=== PATIENT | female | born 1940 | race Caucasian/White ===

== ENCOUNTER 2018-11-03 14:36 | Inpatient (IN) | payer MEDICARE, OTHER | END 2018-11-07 12:00 | disposition home or self-care (01) | LOC: EDH 14:36 → 4BH 11-05 16:50 → EDHIP 18:40 → 4BH 22:41 | DX: S82.831A Other fracture of upper and lower end of right fibula, initial encounter for closed fracture (principal); E87.1 Hypo-osmolality and hyponatremia; S01.01XA Laceration without foreign body of scalp, initial encounter; S82.24 Spiral fracture of shaft of tibia; X58.XXXA Exposure to other specified factors, initial encounter ==

== ENCOUNTER 2018-12-07 08:11 | Emergency (ER) | payer MEDICARE, OTHER ==
[~2018-12-07 08:11] MED LIST: LEVE500T8 PO
[2018-12-07 09:52] LABS: BILIRUBIN,URINE Negative (NEGATIVE); COLOR,URINE Yellow (YELLOW); GLUCOSE, URINE (UA) Negative (NEGATIVE); KETONES,URINE Trace mg/dL (NEGATIVE); LEUKOCYTE ESTERASE ,URINE Negative (NEGATIVE); NITRATE,URINE Negative (NEGATIVE); OCCULT BLOOD,URINE Negative (NEGATIVE); PROTEIN,URINE Negative (NEGATIVE); UROBILINOGEN,URINE 0.2 mg/dL (0.2-1.0)
[2018-12-07 09:53] LABS: APPEARANCE,URINE CLEAR (CLEAR)
[2018-12-07 10:01] LABS: CREATININE 0.8 mg/dL (0.5-1.5); POTASSIUM 3.6 mmol/L (3.5-5.1)
[2018-12-07 10:06] LABS: ALBUMIN 3.8 g/dL (3.5-5.0); BILIRUBIN,TOTAL 0.7 mg/dL (0.2-1.0); TOTAL PROTEIN, SERUM 7.8 g/dL (6.0-8.3)
[2018-12-07 10:10] LABS: BACTERIA,URINE Rare /HPF (None Seen); RBC,URINE None Seen /HPF (0-1); SQUAMOUS EPITHELIAL CELL,UR Rare /HPF (0-2); WBC,URINE 0-1 /HPF (0-1)
[2018-12-07 11:40] LABS: BASOPHILS % (AUTO) 0.9 % (0.0-5.0); EOSINOPHILS % (AUTO) 0.4 % (0.0-8.0); HEMATOCRIT 42.2 % (36-48); LYMPHOCYTES % (AUTO) 13.1 % (21.0-51.0); MEAN CORPUSCULAR HEMOGLOBIN 34.5 pg (27.0-33.0); MEAN CORPUSCULAR HGB CONC 33.8 g/dL (32.0-36.0); MEAN CORPUSCULAR VOLUME 102.1 fL (79-99); NEUTROPHILS % (AUTO) 75.6 % (40.0-77.0); PLATELET COUNT (AUTO) 284 K/uL (130-400); RED BLOOD CELL COUNT(AUTO) 4.13 MIL/uL (4.00-5.50); RED CELL DISTRIBUTION WIDTH 13.4 % (11.0-15.5); WHITE BLOOD COUNT (AUTO) 11.4 K/uL (4.8-10.8)
[2018-12-07 12:13] LABS: INR 0.95 (0.85-1.15); PARTIAL THROMBOPLASTIN TIME 29.1 SEC (26.3-35.5)
== END 2018-12-07 10:37 | disposition home or self-care (01) ==
LOC: EDH 08:11
DX: S00.03XA Contusion of scalp, initial encounter (principal); M54.2 Cervicalgia; W06.XXXA Fall from bed, initial encounter; Y93.89 Activity, other specified; Y92.89 Other specified places as the place of occurrence of the external cause; Y99.8 Other external cause status
CPT/HCPCS: 36415; 70450; 72125; 80053; 81001; 82550; 84484; 85025; 85610; 85730; 93005

== ENCOUNTER 2019-02-13 10:36 | Inpatient (IN) | payer MEDICARE, OTHER ==
[~2019-02-13] VITALS: Ht 167.6 cm; Wt 63.9 kg
[2019-02-13 11:09] LABS: BASOPHILS % (AUTO) 0.9 % (0.0-5.0); EOSINOPHILS % (AUTO) 0.4 % (0.0-8.0); HEMATOCRIT 43.8 % (36-48); LYMPHOCYTES % (AUTO) 21.6 % (21.0-51.0); MEAN CORPUSCULAR HEMOGLOBIN 34.8 pg (27.0-33.0); MEAN CORPUSCULAR HGB CONC 34.5 g/dL (32.0-36.0); MEAN CORPUSCULAR VOLUME 100.9 fL (79-99); MONOCYTES % (AUTO) 7.2 % (3.0-13.0); NEUTROPHILS % (AUTO) 69.9 % (40.0-77.0); NUCLEATED RED BLOOD CELLS 0.1 % (0.0-0.19); PLATELET COUNT (AUTO) 258 K/uL (130-400); RED BLOOD CELL COUNT(AUTO) 4.34 MIL/uL (4.00-5.50); RED CELL DISTRIBUTION WIDTH 13.6 % (11.0-15.5); WHITE BLOOD COUNT (AUTO) 6.7 K/uL (4.8-10.8)
[2019-02-13 11:13] LABS: CREATININE 0.8 mg/dL (0.5-1.5); POTASSIUM 3.6 mmol/L (3.5-5.1)
[2019-02-13 11:18] LABS: ALBUMIN 4.2 g/dL (3.5-5.0); BILIRUBIN,TOTAL 0.5 mg/dL (0.2-1.0); TOTAL PROTEIN, SERUM 7.9 g/dL (6.0-8.3)
[2019-02-13 11:30] LABS: INR 0.97 (0.85-1.15); PROTHROMBIN TIME 10.2 SEC (9.6-11.6)
[2019-02-13 12:55] LABS: APPEARANCE,URINE Cloudy (CLEAR); BILIRUBIN,URINE Negative (NEGATIVE); COLOR,URINE Yellow (YELLOW); GLUCOSE, URINE (UA) Negative (NEGATIVE); KETONES,URINE Negative (NEGATIVE); LEUKOCYTE ESTERASE ,URINE Trace (NEGATIVE); NITRATE,URINE Negative (NEGATIVE); OCCULT BLOOD,URINE Negative (NEGATIVE); PH,URINE >=9.0 (5.0-8.0); PROTEIN,URINE Trace mg/dL (NEGATIVE)
[2019-02-13 13:18] LABS: AMORPHOUS SEDIMENT,UR Few /LPF (None Seen); BACTERIA,URINE Few /HPF (None Seen); RBC,URINE None Seen /HPF (0-1); SQUAMOUS EPITHELIAL CELL,UR Few /HPF (0-2); WBC,URINE 0-1 /HPF (0-1)
[2019-02-13] MEDS ORDERED: ONDANSETRON HCL 4 MG/2 ML VIAL IV PRN (16:15)
[2019-02-13] MEDS ORDERED: ACETAMINOPHEN 325 MG TAB PO PRN ×2 (16:15)
[2019-02-13] MEDS ORDERED: HYDRALAZINE HCL 20 MG/ML VIAL IV PRN (16:15)
[2019-02-13] MEDS ORDERED: RED600CA6 PO (18:11)
--- NOTE | 2019-02-13 18:15 | NUR ---
Rec'd report from ER nurse; according to report, Dr. Reno is aware the neurology (Dr. Mccord) will not be available until Friday and is okay with this. Pt admitted from ER via stretcher to room 431 with at side. Pt awake, but very confused. Pulling at IV catheter, cafeteria monitor, and clothing. Unable to follow commands or make needs known.
[2019-02-13 19:03] VITALS: BP 138/90
--- NOTE | 2019-02-13 19:15 | NUR ---
Notified Tony Becker NP for hospitalist, of pt's continued confusion and of report from ER that MD is okay with no neuro consult until Friday. Rec'd orders for 1:1 sitter. He stated he will verify timing of neuro consult with MD and write further orders at that time.
[2019-02-13] MEDS ORDERED: LORAZEPAM 2 MG/ML 1 ML VIAL IM SCH (20:00)
--- NOTE | 2019-02-13 20:05 | NUR ---
NOTE Coral OVERTON CAME TO FLOOR AND SAID HE PLACED ORDERS TO HOLD LOVENOX, ATIVAN FOR AGITATION AND ONE TO ONE SITTER OBSERVATION.
[2019-02-13] MEDS: FAMOTIDINE/PF 20 MG/2 ML VIAL IV SCH (20:35)
[2019-02-13 23:32] VITALS: BP 161/63
[2019-02-13 23:34] VITALS: BP 161/63
[2019-02-14] VITALS (7 sets, daily range): BP systolic 132–160; BP diastolic 49–95
[2019-02-14] MEDS ORDERED: LORAZEPAM 2 MG/ML 1 ML VIAL IVP SCH (04:00)
--- NOTE | 2019-02-14 07:15 | NUR ---
ORIENTATION: PT AROUSED FROM SLEEP. DENIES PAIN. ORIENTATED TO PERSON, TIME AND PLACE, REMEMBERS HER NAME, BUT DOES NOT KNOW WHERE SHE IS AT AND DOES NOT REMEMBER ANYTHING ABOUT YESTERDAY
--- NOTE | 2019-02-14 07:47 | NUR ---
NUTRITION: SITTING UP IN BED, EATING BREAKFAST. ORIENTATED TO TODAY'S DATE, PT WONDERING WHAT HAPPENED TO HER WHY SHE FAINTED. EXPLAINED TESTS STILL PENDING AND DR WILL COME IN AND DISCUSS RESULTS WITH HER.
--- NOTE | 2019-02-14 08:55 | NUR ---
ELIMINATION: AMB TO BR, SLIGHTLY UNSTEADY, VOIDED 300MLS DK RICARDO URINE. AMB BACK TO BEDSIDE CHAIR.
[2019-02-14] MEDS ORDERED: ENOXAPARIN SODIUM 40 MG/0.4 ML SYRINGE SQ SCH (09:00)
--- NOTE | 2019-02-14 09:00 | NUR ---
hygeine: brushed her teeth and washed face.
--- NOTE | 2019-02-14 09:15 | NUR ---
activity: amb in hallway with this nurse, gait more steady. Pt very talkative. Does not remember where she lives.
[2019-02-14] MEDS: FAMOTIDINE/PF 20 MG/2 ML VIAL IV SCH ×2 (09:29→19:45)
--- NOTE | 2019-02-14 09:30 | NUR ---
visitation: HERE WITH HER.
--- NOTE | 2019-02-14 10:08 | NUR ---
activity: AMB IN THE ROOM, PUTTING ON HER MAKEUP.
[2019-02-14] MEDS ORDERED: LORAZEPAM 2 MG/ML 1 ML VIAL IVP PRN (10:15)
[2019-02-14] MEDS ORDERED: GADODIAMIDE 5 MMOL/10 ML VIAL 5 MMOL/10 ML VIAL IV ONE (10:34)
--- NOTE | 2019-02-14 10:55 | NUR ---
ACTIVITY: DRINKING COFFEE AND VISITING WITH HER . PT STILL FORGETFUL ABOUT SOMETHINGS. CHEERFUL AND PLEASANT.
--- NOTE | 2019-02-14 11:45 | NUR ---
MRI: TAKEN TO MRI VIA W/C WITH MRI PERSONNEL.
--- NOTE | 2019-02-14 12:08 | NUR ---
MRI: BACK FROM MRI. TO CHAIR TO EAT HER LUNCH, IN THE ROOM.
--- NOTE | 2019-02-14 15:00 | NUR ---
orientation: PT FORGETFUL AND CONFUSES EASILY ABOUT WHERE SHE IS AT. GETS UP AND WANTS TO GO OUT IN HALLWAY TO LOOK FOR A SCREWDRIVER TO FIX HER PHONE CASE. REMIND HER OFTEN ABOUT WHERE SHE IS AT AND STARTS TALKING ABOUT SOMETHING ELSE.
--- NOTE | 2019-02-14 16:05 | NUR ---
ACTIVITY: SITTING UP IN CHAIR READING THE NEWSPAPER. ASKING HER " IS THIS WHAT I AM WEARING TO GO HOME" REMINDED HER THAT SHE IS NOT GOING HOME TODAY AND CONT TO READ PAPER.
--- NOTE | 2019-02-14 17:03 | NUR ---
family: KISSED PT GOODBYE AND TOLD HER WILL BE BACK IN THE MORNING, GOING HOME. PT ASKING WERE ARE YOU GOING. REPEATED HIMSELF AGAIN AND PT DID NOT RESPOND.
--- NOTE | 2019-02-14 17:16 | NUR ---
D/C PLAN CM spoke to pt regarding d/c planning. Pt is ind. and lives with spouse. State spouse can assist in care if needed. Pt has wk at home but does not use. Plan to home. CM to f/u Addendum: 02/14/19 at 1717 by CHIQUI DURHAM CM Amended: Links added.
--- NOTE | 2019-02-14 18:30 | NUR ---
restless: GETTING ANXIOUS, TRYING TO CALL HER AND NO ANSWER. REASURED,THIS NURSE CALLED 'S PHONE NUMBER AND LEFT MESSAGE TO CALL THE PT.
--- NOTE | 2019-02-14 18:55 | NUR ---
ACTIVITY: AMB IN HALLWAY, DISTRACTING PT.
--- NOTE | 2019-02-14 19:20 | NUR ---
REST: PT STATES SHE IS READY FOR BED, ASSISSTED TO CHANGE AND LIE DOWN IN BED. CALL BRENNAN AT HER SIDE. LIGHTS DIMMED AT PT'S REQUEST.
--- NOTE | 2019-02-14 19:30 | NUR ---
report: REPORT TO David DAHL CNA FOR CONTINUITY OF CARE. KITA BRYANT TO PT AND PT VERY GRATEFUL FOR ALL THE CARE.
--- NOTE | 2019-02-14 19:40 | NUR ---
: PT'S TALKING TO HER ON THE TELEPHONE.
[2019-02-15 00:36] VITALS: BP 148/82
[2019-02-15 04:30] VITALS: BP 140/70
[2019-02-15 07:00] VITALS: BP 146/66
[2019-02-15] MEDS: FAMOTIDINE/PF 20 MG/2 ML VIAL IV SCH ×2 (08:13→20:04)
[2019-02-15 08:43] LABS: MEAN CORPUSCULAR HEMOGLOBIN 34.1 pg (27.0-33.0); MEAN CORPUSCULAR HGB CONC 33.5 g/dL (32.0-36.0); NUCLEATED RED BLOOD CELLS 0.1 % (0.0-0.19); PLATELET COUNT (AUTO) 235 K/uL (130-400); RED BLOOD CELL COUNT(AUTO) 4.02 MIL/uL (4.00-5.50); RED CELL DISTRIBUTION WIDTH 13.7 % (11.0-15.5); WHITE BLOOD COUNT (AUTO) 7.3 K/uL (4.8-10.8)
[2019-02-15 08:50] LABS: CREATININE 0.7 mg/dL (0.5-1.5); POTASSIUM 3.5 mmol/L (3.5-5.1)
[2019-02-15 11:24] VITALS: BP 135/61
[2019-02-15] MEDS: LEVETIRACETAM 500 MG TABLET PO SCH ×2 (11:40→20:04)
--- NOTE | 2019-02-15 14:29 | NUR ---
RD Notification Patient tolerating Regular diet with no report of GI distress and PO intake at 100%. Patient with no nutrition concerns at this time. Patient LBM 02/14/19. All nutritional labs WNL. RD to continue to monitor. Please notify RD as nutritional concerns arise. Thank you. Addendum: 02/15/19 at [address] Amended: Links added.
[2019-02-15 16:00] VITALS: BP 128/71
[2019-02-15] MEDS: ENOXAPARIN SODIUM 30 MG/0.3 ML SQ SCH (17:02)
[2019-02-15] MEDS ORDERED: POTASSIUM CHLORIDE 20 MEQ ERTAB PO PRN (19:00)
[2019-02-15] MEDS ORDERED: LIDOCAINE HCL-MPF 1% 2ML VIAL IVP PRN ×2 (19:00)
[2019-02-15] MEDS ORDERED: POTASSIUM CHLORIDE 20MEQ/100ML 100 ML IV PRN ×2 (19:00)
[2019-02-15] MEDS ORDERED: POTASSIUM CHLORIDE 10% ELIXIR 20 MEQ/15 ML UDCUP PO PRN (19:00)
[2019-02-15 20:00] VITALS: BP 142/68
[2019-02-16] VITALS: BP 140/77
[2019-02-16 04:00] VITALS: BP 141/76
[2019-02-16 04:40] LABS: MEAN CORPUSCULAR HEMOGLOBIN 35.2 pg (27.0-33.0); MEAN CORPUSCULAR HGB CONC 34.7 g/dL (32.0-36.0); MEAN CORPUSCULAR VOLUME 101.5 fL (79-99); NUCLEATED RED BLOOD CELLS 0.1 % (0.0-0.19); PLATELET COUNT (AUTO) 205 K/uL (130-400); RED BLOOD CELL COUNT(AUTO) 3.74 MIL/uL (4.00-5.50); RED CELL DISTRIBUTION WIDTH 13.5 % (11.0-15.5)
[2019-02-16 04:53] LABS: CREATININE 0.8 mg/dL (0.5-1.5); POTASSIUM 3.7 mmol/L (3.5-5.1)
[2019-02-16 08:00] VITALS: BP 142/67
[2019-02-16] MEDS: ENOXAPARIN SODIUM 30 MG/0.3 ML SQ SCH (08:37)
[2019-02-16] MEDS: FAMOTIDINE/PF 20 MG/2 ML VIAL IV SCH (08:37)
[2019-02-16] MEDS: LEVETIRACETAM 500 MG TABLET PO SCH (08:37)
[2019-02-16 10:00] VITALS: BP_SYST 125; BP_SYST 134; BP_SYST 143; BP_DIAS 58; BP_DIAS 62
[2019-02-16] MEDS ORDERED: ATORVASTATIN CALCIUM 20 MG TABLET PO SCH ×2 (10:00→12:00)
[2019-02-16] MEDS ORDERED: DOXY100T2 PO (10:43)
[2019-02-16] MEDS ORDERED: ATOR20TA65 PO (10:43)
[2019-02-16] MEDS ORDERED: LEVE500T8 PO (10:43)
[2019-02-16 11:15] VITALS: BP_SYST 134; BP_SYST 143; BP_SYST 165; BP_DIAS 58; BP_DIAS 62; BP_DIAS 64
[2019-02-16 11:16] VITALS: BP 153/70
[2019-02-16] MEDS ORDERED: DOXYCYCLINE HYCLATE 100 MG TABLET PO SCH (11:30)
--- NOTE | 2019-02-16 14:05 | NUR ---
DISCHARGE DISCHARGE TEACHING DONE WITH PATIENT AND USING TEACHBACK METHOD,VERBALIZED UNDERSTANDING. PT AWARE OF NEED TO SET UP APPOINTMENT WITH PCP AND BOX WORKER. AWARE OF DR. SESAY APPOINTMENT, VERBALIZED UNDERSTANDING. NEW MEDICATION ADMINISTRATION TEACHING DONE WITH PATIENT AND USING TEACHBACK METHOD, VERBALIZED UNDERSTANDING. IV REMOVED, CATH TIP INTACT. TELEPACK REMOVED AND RETURNED. PENDING TO BE TRANSFERRED OUT VIA PRIVATE VEHICLE.
== END 2019-02-16 14:20 | disposition home or self-care (01) | DRG 689 ==
LOC: EDH 10:36 → EDHIP 16:06 → 4AH 17:36
PROVIDERS: ADMIT Family Medicine; ATTEND Family Medicine
DX: N39.0 Urinary tract infection, site not specified (principal); G93.41 Metabolic encephalopathy; E78.5 Hyperlipidemia, unspecified; B95.8 Unspecified staphylococcus as the cause of diseases classified elsewhere; E87.6 Hypokalemia; Z79.899 Other long term (current) drug therapy; Z91.14 Patient's other noncompliance with medication regimen; Z83.3 Family history of diabetes mellitus
CPT/HCPCS: 36415; 70450; 70553; 71045; 80048; 80053; 81001; 82550; 84484; 85025; 85027; 85610; 85730; 87077; 87088; 87186; 93005; A9579; G0378; J1650; J2060; J3490

== ENCOUNTER 2020-09-09 15:58 | Inpatient (IN) | payer MEDICARE, OTHER ==
[~2020-09-09] VITALS: Ht 162.6 cm; Wt 60.1 kg
[~2020-09-09 15:58] MED LIST changes: +ATOR20TA65 PO; +LEVE-43 PO; -LEVE500T8 PO
[2020-09-09 16:38] LABS: BASOPHILS % (AUTO) 0.4 % (0.0-5.0); HEMATOCRIT 41.3 % (36-48); LYMPHOCYTES % (AUTO) 14.2 % (21.0-51.0); MEAN CORPUSCULAR HGB CONC 34.1 g/dL (32.0-36.0); MEAN CORPUSCULAR VOLUME 99.5 fL (79-99); MONOCYTES % (AUTO) 3.8 % (3.0-13.0); NEUTROPHILS % (AUTO) 81.1 % (40.0-77.0); PLATELET COUNT (AUTO) 295 K/uL (130-400); RED BLOOD CELL COUNT(AUTO) 4.15 MIL/uL (4.00-5.50); RED CELL DISTRIBUTION WIDTH 12.9 % (11.0-15.5); WHITE BLOOD COUNT (AUTO) 7.4 K/uL (4.8-10.8)
[2020-09-09 16:53] LABS: CREATININE 0.8 mg/dL (0.5-1.5); POTASSIUM 3.5 mmol/L (3.5-5.1)
[2020-09-09] MEDS ORDERED: LORAZEPAM 2 MG/ML 1 ML VIAL ONE (16:56)
[2020-09-09 16:57] LABS: ALBUMIN 3.6 g/dL (3.5-5.0); BILIRUBIN,TOTAL 0.4 mg/dL (0.2-1.0); TOTAL PROTEIN, SERUM 7.4 g/dL (6.0-8.3)
[2020-09-09] MEDS ORDERED: LEVETIRACETAM 500 MG/5 ML SD VIAL IV ONE ×2 (17:10→20:30)
[2020-09-09] MEDS ORDERED: SODIUM CHLORIDE 0.9% 100 ML IV ONE (17:10)
[2020-09-09] MEDS ORDERED: IOHEXOL-350 75 ML VIAL IV ONE (17:43)
[2020-09-09] MEDS ORDERED: ONDANSETRON HCL 4 MG/2 ML VIAL IV PRN (20:00)
[2020-09-09] MEDS ORDERED: ACETAMINOPHEN 325 MG TAB PO PRN ×2 (20:00)
[2020-09-09] MEDS ORDERED: LACTULOSE 20 GM/30 ML UDCUP PO PRN (20:00)
[2020-09-09] MEDS ORDERED: LORAZEPAM 2 MG/ML 1 ML VIAL IVP PRN (20:00)
[2020-09-09] MEDS ORDERED: COMPOUND IV MISC 1 EACH IVSOLN MISC PRN (20:15)
[2020-09-09] MEDS ORDERED: FAMOTIDINE/PF 20 MG/2 ML VIAL IV ONE (20:31)
[2020-09-09] MEDS ORDERED: SODIUM CHLORIDE 0.9% 1000ML 1,000 ML IV ONE (20:31)
[2020-09-09] MEDS: LEVETIRACETAM 500 MG in SODIUM CHLORIDE 0.9% 100 ML IV SCH (21:00)
[2020-09-09] MEDS: FAMOTIDINE/PF 20 MG/2 ML VIAL IV SCH (21:00)
[2020-09-09 23:57] LABS: AMPHET/METH SCREEN,URINE NEGATIVE (NEGATIVE); BARBITURATE SCREEN, URINE NEGATIVE (NEGATIVE); BENZODIAZEPINES SCREEN,URINE NEGATIVE (NEGATIVE); CANNABINOID SCREEN,URINE NEGATIVE (NEGATIVE); COCAINE SCREEN,URINE NEGATIVE (NEGATIVE); OPIATE SCREEN,URINE NEGATIVE (NEGATIVE); PHENCYCLIDINE SCREEN,URINE NEGATIVE (NEGATIVE)
[2020-09-10] VITALS (7 sets, daily range): BP systolic 116–167; BP diastolic 59–95
[2020-09-10] MEDS: SODIUM CHLORIDE 0.9% 1000ML 1,000 ML IV SCH ×4 (00:34→20:13)
[2020-09-10 00:50] LABS: APPEARANCE,URINE Clear (CLEAR); BILIRUBIN,URINE Negative (NEGATIVE); COLOR,URINE Yellow (YELLOW); GLUCOSE, URINE (UA) Negative (NEGATIVE); KETONES,URINE Trace mg/dL (NEGATIVE); LEUKOCYTE ESTERASE ,URINE Negative (NEGATIVE); NITRATE,URINE Negative (NEGATIVE); OCCULT BLOOD,URINE Negative (NEGATIVE); PH,URINE 5.5 (5.0-8.0); PROTEIN,URINE Negative (NEGATIVE); UROBILINOGEN,URINE 0.2 mg/dL (0.2-1.0)
--- NOTE | 2020-09-10 05:50 | NUR ---
ATTEMPTED TO CONTACT REGARDING ADMISSION INFORMATION AND PATIENT MED LIST, NO ANSWER AT THIS TIME.
[2020-09-10 05:59] LABS: BASOPHILS % (AUTO) 0.6 % (0.0-5.0); EOSINOPHILS % (AUTO) 0.2 % (0.0-8.0); LYMPHOCYTES % (AUTO) 17.4 % (21.0-51.0); MEAN CORPUSCULAR HEMOGLOBIN 33.8 pg (27.0-33.0); MEAN CORPUSCULAR HGB CONC 33.4 g/dL (32.0-36.0); MEAN CORPUSCULAR VOLUME 101.1 fL (79-99); MONOCYTES % (AUTO) 10.9 % (3.0-13.0); NEUTROPHILS % (AUTO) 70.3 % (40.0-77.0); PLATELET COUNT (AUTO) 254 K/uL (130-400); RED BLOOD CELL COUNT(AUTO) 3.76 MIL/uL (4.00-5.50); RED CELL DISTRIBUTION WIDTH 12.9 % (11.0-15.5); WHITE BLOOD COUNT (AUTO) 11.1 K/uL (4.8-10.8)
[2020-09-10 06:05] LABS: CREATININE 0.8 mg/dL (0.5-1.5); POTASSIUM 3.2 mmol/L (3.5-5.1)
--- NOTE | 2020-09-10 06:05 | NUR ---
RETURNED CALL,STATED THAT PATIENT TOOK ATORVASTATIN ONLY AND ENDED CALL BEFORE ADMISSION QUESTIONS COULD BE ASKED.
[2020-09-10] MEDS: FAMOTIDINE/PF 20 MG/2 ML VIAL IV SCH ×2 (08:11→20:04)
[2020-09-10] MEDS: LEVETIRACETAM 500 MG in SODIUM CHLORIDE 0.9% 100 ML IV SCH ×2 (08:19→20:04)
[2020-09-10] MEDS ORDERED: FAMOTIDINE/PF 20 MG/2 ML VIAL IV SCH (09:00)
[2020-09-10] MEDS ORDERED: LIDOCAINE HCL-MPF 1% 2ML VIAL IV PRN (09:15)
[2020-09-10 10:43] LABS: MAGNESIUM 1.9 mg/dL (1.80-2.40); PHOSPHORUS 3.9 mg/dL (2.5-4.9)
--- NOTE | 2020-09-10 11:21 | NUR ---
[facility] REP PORFIRIO INFORMED OF INTERROGATION.
[2020-09-10] MEDS ORDERED: MAGNESIUM 2GM PREMIX 50ML 50 ML IV ONE (11:28)
[2020-09-10] MEDS: POTASSIUM CHLORIDE 20MEQ/100ML 100 ML IV PRN ×2 (11:50→13:22)
--- NOTE | 2020-09-10 18:25 | NUR ---
D/C PLAN Patient with altered mental status. CM spoke to spouse Walker Parada regarding dc planning. [facility] patient was previously ind. with ADL's. Reports patient has walker and crutches at home. [facility] plan is to home but is open to short term snf/rehab if needed. No needs verbalized or identified. CM to f/u. Addendum: 09/10/20 at 1827 by CHIQUI DURHAM CM Amended: Links added.
[2020-09-11] VITALS (8 sets, daily range): BP systolic 121–168; BP diastolic 62–100
[2020-09-11] MEDS: SODIUM CHLORIDE 0.9% 1000ML 1,000 ML IV SCH ×2 (05:17→14:42)
[2020-09-11 05:25] LABS: BASOPHILS % (AUTO) 0.6 % (0.0-5.0); EOSINOPHILS % (AUTO) 1.5 % (0.0-8.0); HEMATOCRIT 43.2 % (36-48); LYMPHOCYTES % (AUTO) 17.2 % (21.0-51.0); MEAN CORPUSCULAR HEMOGLOBIN 33.6 pg (27.0-33.0); MEAN CORPUSCULAR HGB CONC 33.3 g/dL (32.0-36.0); MEAN CORPUSCULAR VOLUME 100.7 fL (79-99); MONOCYTES % (AUTO) 10.4 % (3.0-13.0); NEUTROPHILS % (AUTO) 69.9 % (40.0-77.0); PLATELET COUNT (AUTO) 207 K/uL (130-400); RED BLOOD CELL COUNT(AUTO) 4.29 MIL/uL (4.00-5.50); RED CELL DISTRIBUTION WIDTH 12.5 % (11.0-15.5)
[2020-09-11 06:10] LABS: ALBUMIN 3.3 g/dL (3.5-5.0); BILIRUBIN,TOTAL 1.2 mg/dL (0.2-1.0); CREATININE 0.6 mg/dL (0.5-1.5); POTASSIUM 4.4 mmol/L (3.5-5.1); TOTAL PROTEIN, SERUM 7.1 g/dL (6.0-8.3)
--- NOTE | 2020-09-11 08:00 | NUR ---
DYSPHAGIA EVAL COMPLETED. +S/S OF ASPIRATION WITH ALL TEXTURES. RECOMMEND NPO, ALTERNATE MEANS OF NUTRITION/HYDRATION. RECOMMENDATIONS: DYSPHAGIA THERAPY 1-5X A WEEK FOR 4 WEEKS TO INCREASE ORAL MOTOR STRENGTH AND PHARYNGEAL SWALLOW: LTG#1: Pt WILL TOLERATE LEAST RESTRICTIVE DIET TO MEET NUTRITION/HYDRATION WITH NO S/S OF ASPIRATION. LTG#2: SKILLED EDUCATION Pt/FAMILY/STAFF STG#1: Pt WILL PARTICIPATE IN LARYNGEAL ELEVATION/EXCURSION EXERCISES WITH 80% ACCURACY. STG#2: Pt WILL PARTICIPATE IN TONGUE BASE RETRACTION EXERCISES WITH 80% ACCURACY. STG#3: Pt WILL PARTICIPATE IN ORAL MOTOR EXERCISES WITH 80% ACCURACY. STG#4: Pt WILL PARTICIPATE IN THERAPEUTIC TRIALS OF ADVANCED TEXTURES OF PUREED CONSISTENCY WITH NO S/S OF ASPIRATION. STG#5: PT WILL BE ABLE TO PARTICIPATE IN MBSS. STG#6: SKILLED EDUCATION Pt/FAMILY/STAFF. MBSS TO BE ATTEMPTED WHEN Pt'S MENTATION IMPROVES; Pt CONFUSED AT THIS TIME. Addendum: 09/11/20 at 1144 by VINCE REZA, [facility] Amended: Links added.
--- NOTE | 2020-09-11 08:30 | NUR ---
COGNITIVE-LINGUISTIC EVALUATION COMPLETED. Pt PRESENTS WITH MILD-MODERATE DYSARTHRIA AND MODERATE COGNITIVE DEFICITS. EVALUATIONS: Pt AAOX1 INDEPENDENTLY. Pt NOT ABLE TO PROVIDE AGE, DATE, TIME, PLACE OR SITUATION. Pt CURRENTLY WITH MITTENS ON. Pt ABLE TO REQUEST WANTS AND NEEDS. Pt ABLE TO ANSWER SIMPLE OPEN ENDED QUESTIONS. Pt NOT ABLE TO RECALL INFORMATION (SHORT-TERM OR LONG-TERM MEMORY DEFICITS). Pt FOLLOWED SIMPLE 1-STEP COMMANDS WITH MAX CUES. Pt COMMUNICATING IN SIMPLE SENTENCES. Pt WITH MODERATE ORAL MOTOR WEAKNESS WITH LINGUAL DEVIATION TO THE LEFT. Pt INTELLIGIBLE AT 70% ACCURACY DURING RUNNING SPEECH. Pt WITH DIFFICULTY ATTENDING TO TASK AT THIS TIME. SKILLED SPEECH THERAPY IS RECOMMENDED TARGETING AFOREMENTIONED WEAKNESSES. RECOMMENDATIONS: 1. SKILLED SPEECH THERAPY 1-5XWK FOR 4 WKS TARGETING MOTOR SPEECH AND COGNITION. LTG1: PT WILL INCREASE COGNITIVE-LINGUISTIC SKILLS TO COMMUNICATE WANTS AND NEEDS AND INTERACT IN ADL INDEPENDENTLY ABLE. LTG2: Pt WILL BE 90% INTELLIGIBLE IN RUNNING SPEECH TO INDEPENDENTLY REQUEST WANTS AND NEEDS. STG1: PT WILL INCREASE INTELLIGIBILITY AT THE PHRASE LEVEL USING OVER ARTICULATION, SLOW AND EXAGGERATED SPEECH WITH 80% ACCURACY. STG2: PT WILL COMPLETE ORAL MOTOR EXERCISES WITH 80% ACCURACY. STG3: PT WILL FOLLOW 2-STEP COMMANDS WITH 80% ACCURACY. STG4: PT WILL BE AAOX4 WITH MINIMAL VERBAL CUES. STG5: PT WILL RECALL A LIST OF 4 ITEMS AFTER A SHORT-DELAY IN 80% OF OPPORTUNITIES. STG6: Pt WILL ANSWER WH QUESTIONS WITH 80% ACCURACY. STG7: Pt WILL PROVIDE SOLUTION TO A PROBLEM WITH 80% ACCURACY. STG8: SKILLED EDUCATION Pt/FAMILY/STAFF. Addendum: 09/11/20 at 1204 by DEVI SANCHEZ Amended: Links added.
[2020-09-11] MEDS: FAMOTIDINE/PF 20 MG/2 ML VIAL IV SCH ×2 (09:15→20:59)
[2020-09-11] MEDS: LEVETIRACETAM 500 MG in SODIUM CHLORIDE 0.9% 100 ML IV SCH ×2 (09:15→20:59)
[2020-09-11 10:15] LABS: HEMOGLOBIN A1C 5.3 % (4.0-6.0)
[2020-09-11] MEDS: CEFTRIAXONE SODIUM 1 GM IVP SCH (10:59)
[2020-09-11] MEDS: PINDOLOL 5 MG TAB PO SCH ×2 (10:59→20:59)
[2020-09-12] VITALS (8 sets, daily range): BP systolic 122–166; BP diastolic 56–92
--- NOTE | 2020-09-12 03:01 | NUR ---
PATIENT A/OX1. PLEASANTLY CONFUSED. UNABLE TO STATE DATE, AGE, LOCATION. NO RESPIRATORY DISTRESS NOTED. RESTING IN BED WITH MITTENS ON HANDS TO PREVENT PATIENT FROM PULLING ON IV TUBING. ORAL CARE DONE. PATIENT MOUTH DRY. PATIENT IS NPO PER RECOMMENDATIONS. FONTANEZ IN PLACE DRAINING DARK YELLOW URINE. MICHAEL CARE GIVEN BY MEDICAL BILLING SERVICE. BED ALARM ON. WILL CONTINUE TO MONITOR.
[2020-09-12 05:34] LABS: BASOPHILS % (AUTO) 0.5 % (0.0-5.0); EOSINOPHILS % (AUTO) 1.2 % (0.0-8.0); HEMATOCRIT 36.9 % (36-48); LYMPHOCYTES % (AUTO) 14.4 % (21.0-51.0); MEAN CORPUSCULAR HEMOGLOBIN 33.9 pg (27.0-33.0); MEAN CORPUSCULAR HGB CONC 34.1 g/dL (32.0-36.0); MEAN CORPUSCULAR VOLUME 99.2 fL (79-99); MONOCYTES % (AUTO) 11.5 % (3.0-13.0); NEUTROPHILS % (AUTO) 71.6 % (40.0-77.0); PLATELET COUNT (AUTO) 226 K/uL (130-400); RED BLOOD CELL COUNT(AUTO) 3.72 MIL/uL (4.00-5.50); RED CELL DISTRIBUTION WIDTH 12.4 % (11.0-15.5); WHITE BLOOD COUNT (AUTO) 9.2 K/uL (4.8-10.8)
[2020-09-12 07:32] LABS: ALBUMIN 2.9 g/dL (3.5-5.0); BILIRUBIN,TOTAL 0.8 mg/dL (0.2-1.0); CREATININE 0.6 mg/dL (0.5-1.5); TOTAL PROTEIN, SERUM 6.2 g/dL (6.0-8.3)
[2020-09-12] MEDS: FAMOTIDINE/PF 20 MG/2 ML VIAL IV SCH ×2 (07:51→21:04)
[2020-09-12] MEDS: CEFTRIAXONE SODIUM 1 GM IVP SCH (07:51)
[2020-09-12] MEDS: SODIUM CHLORIDE 0.9% 1000ML 1,000 ML IV SCH (07:52)
[2020-09-12] MEDS: POTASSIUM CHLORIDE 20MEQ/100ML 100 ML IV PRN (07:52)
--- NOTE | 2020-09-12 08:30 | NUR ---
ASSESSMENT PT IS AWAKE AND ALERT X1, PLEASANT. DENIES PAIN, BREATHING PATTERN IS EVEN AND UNLABORED. NO VISIBLE SIGNS OF DISTRESS NOTED. SITTING UPRIGHT IN BED. SIDE RAILS ARE PADDED, SIDE RAILS UP X4, BILATERAL MITTENS IN PLACE, REMOVED AND ASSESSED HANDS NO BRUISING TO WRISTS NOTED, FINGERS WITH CAPILLARY REFILL WNLS. MITTENS REAPPLIED. DOOR AJAR. CALL LIGHT WITHIN REACH.
[2020-09-12] MEDS: PINDOLOL 5 MG TAB PO SCH ×3 (08:43→21:05)
[2020-09-12] MEDS: LEVETIRACETAM 500 MG in SODIUM CHLORIDE 0.9% 100 ML IV SCH ×2 (08:43→21:04)
--- NOTE | 2020-09-12 09:30 | NUR ---
DYSPHAGIA RE-EVAL COMPLETED. +S/S OF ASPIRATION WITH THIN LIQUIDS. RECOMMEND MECHANICAL SOFT/CHOPPED, NECTAR-THICK LIQUID DIET; PILLS WHOLE WITH LIQUIDS. RECOMMENDATIONS: DYSPHAGIA THERAPY 1-5X WEEK TO INCREASE ORAL MOTOR STRENGTH AND PHARYNGEAL SWALLOW: LTG#1: Pt WILL TOLERATE LEAST RESTRICTIVE DIET TO MEET NUTRITION/HYDRATION WITH NO S/S OF ASPIRATION. LTG#2: SKILLED EDUCATION Pt/FAMILY/STAFF STG#1: Pt WILL PARTICIPATE IN LARYNGEAL ELEVATION/EXCURSION EXERCISES WITH 80% ACCURACY. STG#2: Pt WILL PARTICIPATE IN TONGUE BASE RETRACTION EXERCISES WITH 80% ACCURACY. STG#3: Pt WILL PARTICIPATE IN ORAL MOTOR EXERCISES WITH 80% ACCURACY. STG#4: Pt WILL TOLERATE MECHANICAL SOFT/CHOPPED, NECTAR-THICK LIQUIDS WITH NO S/S OF ASPIRATION. STG#5: PT WILL TOLERATE TRIALS OF ADVANCED TRIALS IF THIN LIQUIDS WITH NO OVERT S/S OF ASPIRATION. STG#6: SKILLED EDUCATION Pt/FAMILY/STAFF. INSPECTOR PACKER COORDINATED WITH NURSE SCHMITZ AND AT THIS TIME. ALL QUESTIONS ANSWERED AT THIS TIME. Addendum: 09/12/20 at [address] Amended: Links added.
--- NOTE | 2020-09-12 10:27 | NUR ---
STATUS PT IS AWAKE AND ALERT AND ORIENTED, IS AT BEDSIDE. MITTENS REMOVED FROM PATIENT. CALL LIGHT WITHIN REACH.
--- NOTE | 2020-09-12 14:30 | NUR ---
STATUS RESTING IN BED. REMAINS CALM. MITTENS REMAIN OFF. SIDE RAILS UP X4 AT BEDSIDE.
--- NOTE | 2020-09-12 17:53 | NUR ---
STATUS SITTING UP IN BED, TOLERATED DINNER WITH NURSE AIDE ASSISTANCE
[2020-09-13 03:57] VITALS: BP 143/68
[2020-09-13 06:04] LABS: BASOPHILS % (AUTO) 0.8 % (0.0-5.0); EOSINOPHILS % (AUTO) 3.8 % (0.0-8.0); HEMATOCRIT 37.5 % (36-48); LYMPHOCYTES % (AUTO) 18.8 % (21.0-51.0); MEAN CORPUSCULAR HEMOGLOBIN 33.4 pg (27.0-33.0); MEAN CORPUSCULAR HGB CONC 33.6 g/dL (32.0-36.0); MEAN CORPUSCULAR VOLUME 99.5 fL (79-99); MONOCYTES % (AUTO) 13.4 % (3.0-13.0); NEUTROPHILS % (AUTO) 62.5 % (40.0-77.0); PLATELET COUNT (AUTO) 236 K/uL (130-400); RED BLOOD CELL COUNT(AUTO) 3.77 MIL/uL (4.00-5.50); RED CELL DISTRIBUTION WIDTH 12.2 % (11.0-15.5); WHITE BLOOD COUNT (AUTO) 9.2 K/uL (4.8-10.8)
[2020-09-13 06:18] LABS: ALBUMIN 2.9 g/dL (3.5-5.0); CREATININE 0.7 mg/dL (0.5-1.5); TOTAL PROTEIN, SERUM 6.3 g/dL (6.0-8.3)
[2020-09-13 07:55] VITALS: BP 151/81
[2020-09-13 08:07] VITALS: BP_SYST 128; BP_SYST 137; BP_SYST 151; BP_DIAS 76; BP_DIAS 81; BP_DIAS 98
--- NOTE | 2020-09-13 08:30 | NUR ---
AM ASSESSMENT PT AMBULATING IN RM. A/O X 1. NO SOB. NO DISTRESS NOTED. DENIES PAIN OR DISCOMFORT. DENIES PALPITATIONS. DENIES N/V AND/OR DIARRHEA. UP W/ASSISTANCE. INSTRUCTED & REORIENTED TO CALL FOR ASSISTANCE. CALL ANU W/IN REACH.
[2020-09-13] MEDS: PINDOLOL 5 MG TAB PO SCH (08:32)
[2020-09-13] MEDS: POTASSIUM CHLORIDE 10% ELIXIR 20 MEQ/15 ML UDCUP PO PRN ×2 (08:44→10:19)
[2020-09-13] MEDS ORDERED: POTASSIUM CHLORIDE 20 MEQ ERTAB PO PRN (08:45)
[2020-09-13] MEDS ORDERED: FAMOTIDINE 20MG TAB 20 MG TAB PO SCH (09:00)
[2020-09-13] MEDS ORDERED: PIND10TA2 PO (09:00)
[2020-09-13] MEDS ORDERED: LEVETIRACETAM 500 MG TABLET PO SCH ×3 (10:00→21:00)
--- NOTE | 2020-09-13 10:55 | NUR ---
DISCHARGE VERBAL & WRITTEN DISCHARGE INSTRUCTIONS REVIEWED & GIVEN TO PT & PT'S SPOUSE, ZOEY ADAMS. QUESTIONS ENCOURAGED & CLARIFIED. PROPER CARE & MGT OF SEIZURES REVIEWED. NEW PRESCRIBED MEDICATIONS REVIEWED. PRESCRIPTION X 2 GIVEN TO PT' SPOUSE; SIGNED COPIES PLACED IN CHART. TELE ANDRESSA REMOVED EARLIER. NO IV. PT & SPOUSE TO GATHER PERSONAL BELONGINGS. WILL NOTIFY STAFF WHEN READY TO BE TAKEN TO PRIVATE VEHICLE.
--- NOTE | 2020-09-13 11:10 | NUR ---
DISCHARGE PT TAKEN TO PRIVATE VEHICLE VIA WC BY Arina DURHAM PCP. NO DISTRESS NOTED.
[2020-09-13] MEDS ORDERED: PINDOLOL 5 MG TAB PO SCH (21:00)
[2020-09-13] MEDS ORDERED: ATORVASTATIN CALCIUM 20 MG TABLET PO SCH (21:00)
--- NOTE | 2020-09-14 12:27 | NUR ---
Transitional Care - Post Discharge Note NO ANSWER at phone number listed. Mailbox is full and unable to leave message. [phone] is a non-working number . Addendum: 09/14/20 at 1229 by YARA FOURNIER Amended: Links added.
== END 2020-09-13 11:45 | disposition home or self-care (01) | DRG 101 ==
LOC: EDH 15:58 → EDHIP 19:51 → 4DH 23:41
PROVIDERS: ADMIT Family Medicine; ATTEND Family Medicine
PROC: 4B02XSZ Measurement of Cardiac Pacemaker, External Approach (ICD-10-PCS; principal; 2020-09-11)
DX: G40.909 Epilepsy, unspecified, not intractable, without status epilepticus (principal); E87.6 Hypokalemia; E11.9 Type 2 diabetes mellitus without complications; E78.00 Pure hypercholesterolemia, unspecified; E78.5 Hyperlipidemia, unspecified; I10 Essential (primary) hypertension; I95.1 Orthostatic hypotension; J44.9 Chronic obstructive pulmonary disease, unspecified; F03.90 Unspecified dementia, unspecified severity, without behavioral disturbance, psychotic disturbance, mood disturbance, and anxiety; Z20.828 Contact with and (suspected) exposure to other viral communicable diseases; Z86.73 Personal history of transient ischemic attack (TIA), and cerebral infarction without residual deficits; Z87.891 Personal history of nicotine dependence; Z95.0 Presence of cardiac pacemaker
CPT/HCPCS: 36415; 70450; 70496; 70498; 71045; 80048; 80053; 80061; 80177; 80305; 81003; 82140; 82550; 82948; 83036; 83735; 84100; 84132; 84484; 85025; 87040; 87426; 92522; 92610; 93005; G0378; J0696; J1953; J2060; J3475; J3480; J3490; J7030; Q9967; U0003

== ENCOUNTER 2020-09-14 16:57 | Inpatient (IN) | payer MEDICARE, OTHER ==
[~2020-09-14] VITALS: Ht 165.1 cm; Wt 59.3 kg
[~2020-09-14 16:57] MED LIST changes: +PIND10TA2 PO
[2020-09-14 17:43] LABS: BASOPHILS % (AUTO) 0.4 % (0.0-5.0); EOSINOPHILS % (AUTO) 0.4 % (0.0-8.0); HEMATOCRIT 46.6 % (36-48); LYMPHOCYTES % (AUTO) 10.6 % (21.0-51.0); MEAN CORPUSCULAR HGB CONC 34.5 g/dL (32.0-36.0); MEAN CORPUSCULAR VOLUME 98.3 fL (79-99); MONOCYTES % (AUTO) 11.9 % (3.0-13.0); NEUTROPHILS % (AUTO) 75.9 % (40.0-77.0); PLATELET COUNT (AUTO) 267 K/uL (130-400); RED BLOOD CELL COUNT(AUTO) 4.74 MIL/uL (4.00-5.50); RED CELL DISTRIBUTION WIDTH 12.2 % (11.0-15.5); WHITE BLOOD COUNT (AUTO) 11.9 K/uL (4.8-10.8)
[2020-09-14 17:57] LABS: APPEARANCE,URINE Clear (CLEAR); BILIRUBIN,URINE Negative (NEGATIVE); COLOR,URINE Yellow (YELLOW); GLUCOSE, URINE (UA) Negative (NEGATIVE); KETONES,URINE 15 mg/dL (NEGATIVE); LEUKOCYTE ESTERASE ,URINE Negative (NEGATIVE); NITRATE,URINE Negative (NEGATIVE); OCCULT BLOOD,URINE Negative (NEGATIVE); PROTEIN,URINE POS 1+ mg/dL (NEGATIVE)
[2020-09-14 18:02] LABS: CREATININE 0.7 mg/dL (0.5-1.5); POTASSIUM 3.3 mmol/L (3.5-5.1)
[2020-09-14 18:04] LABS: AMPHET/METH SCREEN,URINE NEGATIVE (NEGATIVE); BARBITURATE SCREEN, URINE NEGATIVE (NEGATIVE); BENZODIAZEPINES SCREEN,URINE NEGATIVE (NEGATIVE); CANNABINOID SCREEN,URINE NEGATIVE (NEGATIVE); COCAINE SCREEN,URINE NEGATIVE (NEGATIVE); OPIATE SCREEN,URINE NEGATIVE (NEGATIVE); PHENCYCLIDINE SCREEN,URINE NEGATIVE (NEGATIVE)
[2020-09-14 18:07] LABS: ALBUMIN 3.5 g/dL (3.5-5.0); BILIRUBIN,TOTAL 1.2 mg/dL (0.2-1.0); TOTAL PROTEIN, SERUM 8.3 g/dL (6.0-8.3)
[2020-09-14 18:20] LABS: ABG BASE EXCESS -5.9 mmol/L (-2.0-3.0); ABG HCO3 15.2 mmol/L (21.0-28.0); ABG OXYGEN SATURATION 96.3 % (95.0-99.0); ABG PCO2 21 mmHg (32-45)
[2020-09-14 18:22] LABS: BACTERIA,URINE Rare /HPF (None Seen); RBC,URINE None Seen /HPF (0-1); SQUAMOUS EPITHELIAL CELL,UR None Seen /HPF (0-2); WBC,URINE 0-1 /HPF (0-1)
[2020-09-14] MEDS ORDERED: ACETAMINOPHEN 325 MG TAB PO PRN (19:00)
[2020-09-14] MEDS ORDERED: ONDANSETRON HCL 4 MG/2 ML VIAL IV PRN (19:00)
[2020-09-14] MEDS: SODIUM CHLORIDE 0.9% 1000ML 1,000 ML IV SCH (19:00)
[2020-09-14] MEDS ORDERED: LACTULOSE 20 GM/30 ML UDCUP PO PRN (19:00)
[2020-09-14] MEDS ORDERED: SODIUM CHLORIDE 0.9% 1000ML 1,000 ML IV ONE (19:46)
[2020-09-14] MEDS ORDERED: FAMOTIDINE/PF 20 MG/2 ML VIAL IV ONE (19:47)
[2020-09-14] MEDS: LEVETIRACETAM 750 MG in SODIUM CHLORIDE 0.9% 100 ML IV SCH (21:00)
[2020-09-14] MEDS ORDERED: LEVETIRACETAM 500 MG in SODIUM CHLORIDE 0.9% 100 ML IV SCH (21:00)
[2020-09-14] MEDS: FAMOTIDINE/PF 20 MG/2 ML VIAL IV SCH (21:00)
[2020-09-14 23:15] VITALS: BP 140/73
[2020-09-15 03:19] VITALS: BP 152/89
[2020-09-15 03:56] LABS: BASOPHILS % (AUTO) 0.6 % (0.0-5.0); EOSINOPHILS % (AUTO) 1.2 % (0.0-8.0); HEMATOCRIT 39.2 % (36-48); LYMPHOCYTES % (AUTO) 14.3 % (21.0-51.0); MEAN CORPUSCULAR HEMOGLOBIN 33.5 pg (27.0-33.0); MEAN CORPUSCULAR HGB CONC 33.7 g/dL (32.0-36.0); MEAN CORPUSCULAR VOLUME 99.5 fL (79-99); MONOCYTES % (AUTO) 14.6 % (3.0-13.0); NEUTROPHILS % (AUTO) 68.3 % (40.0-77.0); PLATELET COUNT (AUTO) 57 K/uL (130-400); RED BLOOD CELL COUNT(AUTO) 3.94 MIL/uL (4.00-5.50); RED CELL DISTRIBUTION WIDTH 12.2 % (11.0-15.5)
[2020-09-15 04:05] LABS: CREATININE 0.6 mg/dL (0.5-1.5); POTASSIUM 4.2 mmol/L (3.5-5.1)
[2020-09-15] MEDS: SODIUM CHLORIDE 0.9% 1000ML 1,000 ML IV SCH ×2 (05:00→10:50)
[2020-09-15 09:09] VITALS: BP 139/71
[2020-09-15] MEDS: FAMOTIDINE/PF 20 MG/2 ML VIAL IV SCH ×2 (10:10→19:21)
[2020-09-15] MEDS: LEVETIRACETAM 750 MG in SODIUM CHLORIDE 0.9% 100 ML IV SCH ×2 (10:50→19:21)
[2020-09-15] MEDS ORDERED: IOHEXOL-350 50ML VIAL IV ONE (11:36)
[2020-09-15] MEDS ORDERED: COMPOUND IV MISC 1 EACH IVSOLN MISC PRN (11:45)
[2020-09-15 15:07] VITALS: BP 123/66
[2020-09-15 16:00] VITALS: BP 137/69
[2020-09-15 19:53] VITALS: BP 132/70
[2020-09-15] MEDS: ACETAMINOPHEN 325 MG TAB PO PRN (23:23)
[2020-09-15 23:56] VITALS: BP 116/74
[2020-09-16] MEDS: SODIUM CHLORIDE 0.9% 1000ML 1,000 ML IV SCH ×2 (02:13→11:00)
[2020-09-16 03:36] VITALS: BP 110/54
[2020-09-16 05:24] LABS: BASOPHILS % (AUTO) 0.7 % (0.0-5.0); EOSINOPHILS % (AUTO) 1.8 % (0.0-8.0); HEMATOCRIT 34.3 % (36-48); LYMPHOCYTES % (AUTO) 19.3 % (21.0-51.0); MEAN CORPUSCULAR HEMOGLOBIN 33.3 pg (27.0-33.0); MEAN CORPUSCULAR HGB CONC 32.9 g/dL (32.0-36.0); MEAN CORPUSCULAR VOLUME 101.2 fL (79-99); NEUTROPHILS % (AUTO) 59.1 % (40.0-77.0); PLATELET COUNT (AUTO) 240 K/uL (130-400); RED BLOOD CELL COUNT(AUTO) 3.39 MIL/uL (4.00-5.50); RED CELL DISTRIBUTION WIDTH 12.5 % (11.0-15.5); WHITE BLOOD COUNT (AUTO) 9.7 K/uL (4.8-10.8)
[2020-09-16 05:32] LABS: CREATININE 0.7 mg/dL (0.5-1.5); POTASSIUM 3.3 mmol/L (3.5-5.1)
[2020-09-16] MEDS ORDERED: LIDOCAINE HCL-MPF 1% 2ML VIAL IV PRN (07:00)
[2020-09-16] MEDS ORDERED: POTASSIUM CHLORIDE 20MEQ/100ML 100 ML IV PRN (07:00)
[2020-09-16] MEDS ORDERED: POTASSIUM CHLORIDE 10% ELIXIR 20 MEQ/15 ML UDCUP PO PRN (07:00)
[2020-09-16 08:00] VITALS: BP 134/50
[2020-09-16] MEDS: LEVETIRACETAM 750 MG in SODIUM CHLORIDE 0.9% 100 ML IV SCH (10:32)
[2020-09-16] MEDS: FAMOTIDINE/PF 20 MG/2 ML VIAL IV SCH (10:32)
[2020-09-16] MEDS: POTASSIUM CHLORIDE 20 MEQ ERTAB PO PRN ×3 (10:33→15:37)
[2020-09-16] MEDS: ACETAMINOPHEN 325 MG TAB PO PRN (10:33)
[2020-09-16 11:43] VITALS: BP 133/86
[2020-09-16] MEDS ORDERED: LEVE750T4 PO (13:53)
[2020-09-16] MEDS ORDERED: LEVETIRACETAM 250 MG TABLET PO SCH (21:00)
== END 2020-09-16 15:44 | DRG 101 ==
LOC: EDH 16:57 → EDHIP 18:55 → OBSVTOIN 18:55 → 4DH 23:09
PROVIDERS: ADMIT Internal Medicine; ATTEND Internal Medicine
DX: G40.909 Epilepsy, unspecified, not intractable, without status epilepticus (principal); E87.2 Acidosis; R06.03 Acute respiratory distress; R09.02 Hypoxemia; E78.5 Hyperlipidemia, unspecified; I49.5 Sick sinus syndrome; J44.9 Chronic obstructive pulmonary disease, unspecified; I10 Essential (primary) hypertension; D72.829 Elevated white blood cell count, unspecified; Z20.828 Contact with and (suspected) exposure to other viral communicable diseases; Z95.0 Presence of cardiac pacemaker; Z87.891 Personal history of nicotine dependence; Z86.73 Personal history of transient ischemic attack (TIA), and cerebral infarction without residual deficits; Z83.3 Family history of diabetes mellitus
CPT/HCPCS: 36415; 36600; 70450; 70470; 71045; 80048; 80053; 80177; 80305; 81001; 82140; 82803; 83605; 83735; 84145; 84484; 85025; 87426; 93005; 97039; G0378; J1953; J3490; J7030; Q9967; U0003

== ENCOUNTER 2020-12-11 10:14 | Emergency (ER) | payer MEDICARE, OTHER ==
[~2020-12-11 10:14] MED LIST changes: -LEVE-43 PO; +LEVE750T4 PO
[2020-12-11 10:57] LABS: BASOPHILS % (AUTO) 0.5 % (0.0-5.0); EOSINOPHILS % (AUTO) 3.6 % (0.0-8.0); HEMATOCRIT 40.4 % (36-48); LYMPHOCYTES % (AUTO) 15.5 % (21.0-51.0); MEAN CORPUSCULAR HEMOGLOBIN 32.9 pg (27.0-33.0); MEAN CORPUSCULAR HGB CONC 32.4 g/dL (32.0-36.0); MEAN CORPUSCULAR VOLUME 101.5 fL (79-99); MONOCYTES % (AUTO) 6.7 % (3.0-13.0); NEUTROPHILS % (AUTO) 73.1 % (40.0-77.0); PLATELET COUNT (AUTO) 222 K/uL (130-400); RED BLOOD CELL COUNT(AUTO) 3.98 MIL/uL (4.00-5.50); RED CELL DISTRIBUTION WIDTH 13.3 % (11.0-15.5); WHITE BLOOD COUNT (AUTO) 7.8 K/uL (4.8-10.8)
[2020-12-11 11:00] LABS: APPEARANCE,URINE Clear (CLEAR); BILIRUBIN,URINE Negative (NEGATIVE); COLOR,URINE Yellow (YELLOW); GLUCOSE, URINE (UA) Negative (NEGATIVE); KETONES,URINE Negative (NEGATIVE); LEUKOCYTE ESTERASE ,URINE Trace (NEGATIVE); NITRATE,URINE Negative (NEGATIVE); OCCULT BLOOD,URINE Negative (NEGATIVE); PH,URINE 7.5 (5.0-8.0); PROTEIN,URINE Negative (NEGATIVE); UROBILINOGEN,URINE 0.2 mg/dL (0.2-1.0)
[2020-12-11 11:01] LABS: CARBON DIOXIDE 25 mmol/L (21-32); CHLORIDE 105 mmol/L (101-111); CREATININE 0.8 mg/dL (0.5-1.5); GLOMERULAR FILTR. RATE CALC 74 mL/min (>60); GLUCOSE,RANDOM 111 mg/dL (70-105); POTASSIUM 3.9 mmol/L (3.5-5.1); SODIUM SERUM 141 mmol/L (136-145); UREA NITROGEN, BLOOD 12 mg/dL (7-18)
[2020-12-11 11:05] LABS: PROTHROMBIN TIME 10.9 SEC (9.6-11.6)
[2020-12-11 11:06] LABS: PARTIAL THROMBOPLASTIN TIME 25.9 SEC (26.3-35.5)
[2020-12-11 11:11] LABS: ALANINE AMINOTRANSFERASE 15 U/L (12-78); ALBUMIN 3.4 g/dL (3.5-5.0); ASPARTATE AMINOTRANSFERASE 25 U/L (10-37); BILIRUBIN,TOTAL 0.4 mg/dL (0.2-1.0); CREATINE KINASE, TOTAL 51 U/L (21-232); MYOGLOBIN 49 ng/mL (10-92); TOTAL PROTEIN, SERUM 6.8 g/dL (6.0-8.3); TROPONIN I < 0.04 ng/mL (0.00-0.06)
[2020-12-11 11:22] LABS: BACTERIA,URINE None Seen /HPF (None Seen); RBC,URINE None Seen /HPF (0-1); SQUAMOUS EPITHELIAL CELL,UR 0-2 /HPF (0-2); WBC,URINE 0-1 /HPF (0-1)
[2020-12-17] MEDS ORDERED: LEVE750T4 PO (14:58)
== END 2020-12-11 14:44 | disposition home or self-care (01) ==
LOC: EDH 10:14
DX: R56.9 Unspecified convulsions (principal); E78.00 Pure hypercholesterolemia, unspecified
CPT/HCPCS: 36415; 70450; 71045; 80053; 80177; 81001; 82550; 82948; 83605; 83874; 84145; 84484; 85025; 85610; 85730; 86900; 86901; 87040; 87088; 93005

== ENCOUNTER 2020-12-13 11:13 | Inpatient (IN) | payer OTHER ==
[~2020-12-13] VITALS: Ht 165.1 cm; Wt 56.8 kg
[2020-12-13 12:18] LABS: BASOPHILS % (AUTO) 0.2 % (0.0-5.0); HEMATOCRIT 40.3 % (36-48); LYMPHOCYTES % (AUTO) 12.3 % (21.0-51.0); MEAN CORPUSCULAR HEMOGLOBIN 32.5 pg (27.0-33.0); MEAN CORPUSCULAR HGB CONC 32.3 g/dL (32.0-36.0); MEAN CORPUSCULAR VOLUME 100.8 fL (79-99); MONOCYTES % (AUTO) 9.1 % (3.0-13.0); NEUTROPHILS % (AUTO) 76.8 % (40.0-77.0); PLATELET COUNT (AUTO) 220 K/uL (130-400); RED CELL DISTRIBUTION WIDTH 13.5 % (11.0-15.5); WHITE BLOOD COUNT (AUTO) 9.4 K/uL (4.8-10.8)
[2020-12-13 12:26] LABS: CREATININE 0.8 mg/dL (0.5-1.5)
[2020-12-13 12:31] LABS: ALBUMIN 3.5 g/dL (3.5-5.0); BILIRUBIN,TOTAL 0.4 mg/dL (0.2-1.0); TOTAL PROTEIN, SERUM 6.8 g/dL (6.0-8.3)
[2020-12-13 19:10] LABS: PHOSPHORUS 2.4 mg/dL (2.5-4.9)
[2020-12-13 19:11] LABS: MAGNESIUM 1.8 mg/dL (1.80-2.40); THYROID STIMULATING HORMONE 0.95 uIU/mL (0.36-3.74)
[2020-12-13] MEDS ORDERED: LORAZEPAM 2 MG/ML 1 ML VIAL ONE (19:25)
[2020-12-13 19:47] LABS: APPEARANCE,URINE Clear (CLEAR); BILIRUBIN,URINE Negative (NEGATIVE); COLOR,URINE Yellow (YELLOW); GLUCOSE, URINE (UA) Negative (NEGATIVE); KETONES,URINE 15 mg/dL (NEGATIVE); LEUKOCYTE ESTERASE ,URINE Trace (NEGATIVE); NITRATE,URINE Negative (NEGATIVE); OCCULT BLOOD,URINE Negative (NEGATIVE); PROTEIN,URINE Negative (NEGATIVE); UROBILINOGEN,URINE 0.2 mg/dL (0.2-1.0)
[2020-12-13 20:07] LABS: BACTERIA,URINE Few /HPF (None Seen); MUCUS,URINE Moderate LPF (None Seen); SQUAMOUS EPITHELIAL CELL,UR Moderate /HPF (0-2)
[2020-12-13 20:22] LABS: AMPHET/METH SCREEN,URINE NEGATIVE (NEGATIVE); BARBITURATE SCREEN, URINE NEGATIVE (NEGATIVE); BENZODIAZEPINES SCREEN,URINE NEGATIVE (NEGATIVE); CANNABINOID SCREEN,URINE NEGATIVE (NEGATIVE); COCAINE SCREEN,URINE NEGATIVE (NEGATIVE); OPIATE SCREEN,URINE NEGATIVE (NEGATIVE); PHENCYCLIDINE SCREEN,URINE NEGATIVE (NEGATIVE)
[2020-12-13] MEDS ORDERED: DiphenhydrAMINE HCL 50 MG/ML VIAL IV PRN (20:30)
[2020-12-13] MEDS ORDERED: NITROGLYCERIN 0.4 MG SL TAB SL PRN (20:30)
[2020-12-13] MEDS ORDERED: LACTATED RINGERS 1000ML 1,000 ML IV SCH (20:30)
[2020-12-13] MEDS ORDERED: COMPOUND IV MISC 1 EACH IVSOLN MISC PRN (20:30)
[2020-12-13] MEDS ORDERED: DIPHENHYDRAMINE HCL 25 MG CAPSULE PO PRN (20:30)
[2020-12-13] MEDS ORDERED: LACTULOSE 20 GM/30 ML UDCUP PO PRN (20:30)
[2020-12-13] MEDS ORDERED: MAG/ALUM/SIMETH 30 ML UDCUP PO PRN (20:30)
[2020-12-13] MEDS ORDERED: ACETAMINOPHEN 325 MG TAB PO PRN ×2 (20:30)
[2020-12-13] MEDS ORDERED: ONDANSETRON 4MG INJ IV PRN (20:30)
[2020-12-13] MEDS ORDERED: GUAIFENESIN-DM 200/20 MG 10 ML PO PRN (20:30)
[2020-12-14] MEDS ORDERED: LACTATED RINGERS 1000ML 1,000 ML IV ONE (10:21)
[2020-12-14] MEDS: ENOXAPARIN SODIUM 40 MG/0.4 ML SYRINGE SQ SCH (10:36)
[2020-12-14] MEDS: LEVETIRACETAM 500 MG in 0.9%NACL 100ML 100 ML IV SCH ×2 (11:09→21:58)
[2020-12-14 11:40] VITALS: BP 147/69
[2020-12-14 16:48] VITALS: BP 148/89
[2020-12-14 20:00] VITALS: BP 145/83
[2020-12-15] VITALS (7 sets, daily range): BP systolic 146–161; BP diastolic 65–82
[2020-12-15] MEDS: LEVETIRACETAM 500 MG in 0.9%NACL 100ML 100 ML IV SCH (04:55)
[2020-12-15 05:18] LABS: EOSINOPHILS % (AUTO) 4.7 % (0.0-8.0); HEMATOCRIT 37.2 % (36-48); LYMPHOCYTES % (AUTO) 30.3 % (21.0-51.0); MEAN CORPUSCULAR HEMOGLOBIN 32.4 pg (27.0-33.0); MEAN CORPUSCULAR HGB CONC 32.8 g/dL (32.0-36.0); MEAN CORPUSCULAR VOLUME 98.7 fL (79-99); MONOCYTES % (AUTO) 12.2 % (3.0-13.0); NEUTROPHILS % (AUTO) 51.3 % (40.0-77.0); PLATELET COUNT (AUTO) 227 K/uL (130-400); RED BLOOD CELL COUNT(AUTO) 3.77 MIL/uL (4.00-5.50); RED CELL DISTRIBUTION WIDTH 12.9 % (11.0-15.5)
[2020-12-15 05:40] LABS: CREATININE 0.7 mg/dL (0.5-1.5); POTASSIUM 3.2 mmol/L (3.5-5.1)
[2020-12-15] MEDS ORDERED: LIDOCAINE HCL-MPF 1% 2ML VIAL IV PRN (06:30)
[2020-12-15] MEDS ORDERED: POTASSIUM CHLORIDE 10MEQ/100ML 100 ML IV PRN (06:30)
[2020-12-15] MEDS ORDERED: POTASSIUM CHLORIDE 10MEQ/100ML 100 ML IV ONE (06:38)
[2020-12-15] MEDS ORDERED: LIDOCAINE HCL-MPF 1% 2ML VIAL ONE (06:38)
[2020-12-15] MEDS: ENOXAPARIN SODIUM 40 MG/0.4 ML SYRINGE SQ SCH (09:11)
[2020-12-15] MEDS ORDERED: LEVETIRACETAM 750 MG in 0.9%NACL 100ML 100 ML IV SCH (14:00)
[2020-12-15] MEDS ORDERED: LACTATED RINGERS 1000ML 1,000 ML IV ONE (16:04)
[2020-12-15] MEDS: LEVETIRACETAM 750 MG in 0.9%NACL 100ML 100 ML IV SCH (20:02)
[2020-12-16 04:00] VITALS: BP 147/80
[2020-12-16 05:48] LABS: BASOPHILS % (AUTO) 0.7 % (0.0-5.0); HEMATOCRIT 36.5 % (36-48); LYMPHOCYTES % (AUTO) 34.6 % (21.0-51.0); MEAN CORPUSCULAR HEMOGLOBIN 32.6 pg (27.0-33.0); MEAN CORPUSCULAR HGB CONC 33.4 g/dL (32.0-36.0); MEAN CORPUSCULAR VOLUME 97.6 fL (79-99); MONOCYTES % (AUTO) 12.1 % (3.0-13.0); NEUTROPHILS % (AUTO) 46.2 % (40.0-77.0); PLATELET COUNT (AUTO) 245 K/uL (130-400); RED BLOOD CELL COUNT(AUTO) 3.74 MIL/uL (4.00-5.50); RED CELL DISTRIBUTION WIDTH 12.7 % (11.0-15.5); WHITE BLOOD COUNT (AUTO) 5.5 K/uL (4.8-10.8)
[2020-12-16 06:09] LABS: CREATININE 0.8 mg/dL (0.5-1.5); POTASSIUM 3.6 mmol/L (3.5-5.1)
[2020-12-16 08:00] VITALS: BP 146/79
[2020-12-16] MEDS: LEVETIRACETAM 750 MG in 0.9%NACL 100ML 100 ML IV SCH ×2 (08:20→19:32)
[2020-12-16] MEDS: ENOXAPARIN SODIUM 40 MG/0.4 ML SYRINGE SQ SCH (08:22)
[2020-12-16] MEDS ORDERED: LACTATED RINGERS 1000ML 1,000 ML IV ONE (08:29)
[2020-12-16] MEDS: LACTULOSE 20 GM/30 ML UDCUP PO SCH (09:56)
[2020-12-16 11:13] VITALS: BP 143/70
[2020-12-16 16:28] VITALS: BP 150/84
[2020-12-16 19:48] VITALS: BP 158/80
[2020-12-16 23:57] VITALS: BP 151/75
[2020-12-17 04:16] VITALS: BP 141/71
[2020-12-17 08:00] VITALS: BP 118/61
[2020-12-17] MEDS: LACTULOSE 20 GM/30 ML UDCUP PO SCH (09:30)
[2020-12-17] MEDS: ENOXAPARIN SODIUM 40 MG/0.4 ML SYRINGE SQ SCH (09:37)
[2020-12-17] MEDS: LEVETIRACETAM 750 MG in 0.9%NACL 100ML 100 ML IV SCH (09:37)
[2020-12-17 11:36] VITALS: BP 128/90
[2020-12-17] MEDS ORDERED: ZINC OXIDE OINT 60GM TUBE TP PRN (12:00)
[2020-12-17] MEDS ORDERED: GABAPENTIN 100 MG CAPSULE PO SCH (14:00)
[2020-12-17] MEDS ORDERED: LEVE750T4 PO ×2 (14:58)
== END 2020-12-17 15:50 | disposition home or self-care (01) | DRG 918 ==
LOC: EDH 11:13 → EDHIP 20:23 → 3AH 12-14 07:55
PROVIDERS: ADMIT Family Medicine; ATTEND Family Medicine
DX: T42.6X1A Poisoning by other antiepileptic and sedative-hypnotic drugs, accidental (unintentional), initial encounter (principal); G40.909 Epilepsy, unspecified, not intractable, without status epilepticus; J44.9 Chronic obstructive pulmonary disease, unspecified; I49.5 Sick sinus syndrome; E78.00 Pure hypercholesterolemia, unspecified; E78.5 Hyperlipidemia, unspecified; F03.90 Unspecified dementia, unspecified severity, without behavioral disturbance, psychotic disturbance, mood disturbance, and anxiety; Y92.89 Other specified places as the place of occurrence of the external cause; Z79.899 Other long term (current) drug therapy; Z95.0 Presence of cardiac pacemaker; Z86.73 Personal history of transient ischemic attack (TIA), and cerebral infarction without residual deficits; Z83.3 Family history of diabetes mellitus
CPT/HCPCS: 36415; 70450; 71045; 80048; 80053; 80177; 80305; 81001; 82140; 82542; 82550; 82607; 82746; 82948; 83605; 83735; 83874; 84100; 84145; 84425; 84443; 84484; 85025; 85610; 85651; 85730; 86900; 86901; 87040; 87088; 92610; 93005; 97039; G0378; J1650; J1953; J2060; J3490; J7120

== ENCOUNTER 2022-04-01 10:19 | Inpatient (IN) | payer OTHER ==
[~2022-04-01] VITALS: Ht 157.5 cm; Wt 56.5 kg
[2022-04-01 11:36] LABS: ALBUMIN 3.7 g/dL (3.5-5.0); BILIRUBIN,TOTAL 0.8 mg/dL (0.2-1.0); CREATININE 0.7 mg/dL (0.5-1.5); HEMATOCRIT 40.2 % (36-48); MEAN CORPUSCULAR HEMOGLOBIN 33.8 pg (27.0-33.0); MEAN CORPUSCULAR HGB CONC 33.8 g/dL (32.0-36.0); POTASSIUM 3.7 mmol/L (3.5-5.1); RED BLOOD CELL COUNT(AUTO) 4.02 MIL/uL (4.00-5.50); RED CELL DISTRIBUTION WIDTH 14.8 % (11.0-15.5); TOTAL PROTEIN, SERUM 7.1 g/dL (6.0-8.3); WHITE BLOOD COUNT (AUTO) 11.1 K/uL (4.8-10.8)
[2022-04-01 13:57] LABS: AMPHET/METH SCREEN,URINE NEGATIVE (NEGATIVE); BARBITURATE SCREEN, URINE NEGATIVE (NEGATIVE); BENZODIAZEPINES SCREEN,URINE NEGATIVE (NEGATIVE); CANNABINOID SCREEN,URINE NEGATIVE (NEGATIVE); COCAINE SCREEN,URINE NEGATIVE (NEGATIVE); OPIATE SCREEN,URINE NEGATIVE (NEGATIVE); PHENCYCLIDINE SCREEN,URINE NEGATIVE (NEGATIVE)
[2022-04-01] MEDS ORDERED: KETOROLAC 30MG VIAL (30MG/ML) IVP ONE (14:30)
[2022-04-01] MEDS ORDERED: 0.9%NACL 1000ML 500 ML IV ONE (17:30)
[2022-04-01 17:59] LABS: THYROID STIMULATING HORMONE 1.36 uIU/mL (0.36-3.74)
[2022-04-01 18:10] LABS: AMMONIA < 10 umol/L (11-32)
[2022-04-02 06:02] LABS: BASOPHILS % (AUTO) 0.3 % (0.0-5.0); HEMATOCRIT 38.3 % (36-48); LYMPHOCYTES % (AUTO) 11.8 % (21.0-51.0); MEAN CORPUSCULAR HGB CONC 34.2 g/dL (32.0-36.0); MEAN CORPUSCULAR VOLUME 99.5 fL (79-99); MONOCYTES % (AUTO) 6.4 % (3.0-13.0); PLATELET COUNT (AUTO) 326 K/uL (130-400); RED BLOOD CELL COUNT(AUTO) 3.85 MIL/uL (4.00-5.50); RED CELL DISTRIBUTION WIDTH 14.9 % (11.0-15.5); WHITE BLOOD COUNT (AUTO) 10.2 K/uL (4.8-10.8)
[2022-04-02 06:20] LABS: CREATININE 0.7 mg/dL (0.5-1.5); POTASSIUM 3.8 mmol/L (3.5-5.1)
[2022-04-02 08:09] VITALS: BP 175/91
[2022-04-02] MEDS ORDERED: LEVETIRACETAM 250 MG TABLET PO SCH (09:28)
[2022-04-02] MEDS ORDERED: PINDOLOL 5 MG TAB PO SCH (09:33)
[2022-04-02] MEDS ORDERED: LAMO100T16 PO (10:03)
[2022-04-02] MEDS ORDERED: MEMA10TA55 PO (10:03)
[2022-04-02] MEDS: IBUPROFEN 600 MG TABLET PO PRN ×2 (10:04→17:13)
[2022-04-02] MEDS: PANTOPRAZOLE 40 MG TAB DR PO SCH (10:04)
[2022-04-02] MEDS: LAMOTRIGINE 100 MG TABLET PO SCH ×2 (10:11→21:31)
[2022-04-02 11:16] VITALS: BP 140/72
[2022-04-02] MEDS: ACETAMINOPHEN WITH CODEINE 1 TAB TAB PO PRN (13:34)
[2022-04-02 19:00] VITALS: BP 162/85
[2022-04-02] MEDS: ATORVASTATIN 20 MG TABLET PO SCH (21:32)
[2022-04-03] VITALS: BP 184/84
[2022-04-03 04:00] VITALS: BP 185/87
[2022-04-03 08:05] VITALS: BP 155/98
[2022-04-03] MEDS: PANTOPRAZOLE 40 MG TAB DR PO SCH (09:41)
[2022-04-03] MEDS: LAMOTRIGINE 100 MG TABLET PO SCH ×2 (09:42→21:09)
[2022-04-03] MEDS: ACETAMINOPHEN WITH CODEINE 1 TAB TAB PO PRN ×2 (09:43→21:09)
[2022-04-03] MEDS: NIFEDIPINE 10 MG CAP PO SCH ×3 (10:52→21:08)
[2022-04-03 11:13] VITALS: BP 139/58
[2022-04-03 17:37] VITALS: BP 132/54
[2022-04-03 20:00] VITALS: BP 169/83
[2022-04-03] MEDS: ATORVASTATIN 20 MG TABLET PO SCH (21:09)
[2022-04-04] VITALS: BP 147/70
[2022-04-04 04:00] VITALS: BP 132/75
[2022-04-04 08:00] VITALS: BP 135/65
[2022-04-04] MEDS: LAMOTRIGINE 100 MG TABLET PO SCH ×2 (09:54→20:33)
[2022-04-04] MEDS: PANTOPRAZOLE 40 MG TAB DR PO SCH (09:54)
[2022-04-04] MEDS: NIFEDIPINE 10 MG CAP PO SCH ×4 (09:54→20:33)
[2022-04-04 11:26] VITALS: BP 113/67
[2022-04-04] MEDS ORDERED: ACET-2079 PO (13:34)
[2022-04-04 16:00] VITALS: BP 126/74
[2022-04-04 20:00] VITALS: BP 134/83
[2022-04-04] MEDS: ATORVASTATIN 20 MG TABLET PO SCH (20:32)
[2022-04-04] MEDS: ENOXAPARIN SODIUM 30 MG/0.3 ML SQ SCH (20:33)
[2022-04-05] VITALS: BP 130/45
[2022-04-05 03:56] LABS: HEMATOCRIT 33.2 % (36-48); MEAN CORPUSCULAR HEMOGLOBIN 34.5 pg (27.0-33.0); MEAN CORPUSCULAR HGB CONC 34.3 g/dL (32.0-36.0); MEAN CORPUSCULAR VOLUME 100.6 fL (79-99); RED BLOOD CELL COUNT(AUTO) 3.3 MIL/uL (4.00-5.50); RED CELL DISTRIBUTION WIDTH 14.2 % (11.0-15.5); WHITE BLOOD COUNT (AUTO) 10.6 K/uL (4.8-10.8)
[2022-04-05 04:00] VITALS: BP 142/73
[2022-04-05 04:22] LABS: CREATININE 0.7 mg/dL (0.5-1.5); POTASSIUM 3.1 mmol/L (3.5-5.1)
[2022-04-05] MEDS ORDERED: POTASSIUM CHLORIDE 20MEQ/100ML 100 ML IV PRN (05:00)
[2022-04-05] MEDS ORDERED: KCL 20 MEQ ERTAB PO PRN (05:00)
[2022-04-05] MEDS ORDERED: POTASSIUM CHLORIDE 10% ELIXIR 20 MEQ/15 ML UDCUP PO PRN (05:00)
[2022-04-05] MEDS ORDERED: LIDOCAINE HCL-MPF 1% 2ML VIAL IV PRN (05:00)
[2022-04-05] MEDS ORDERED: KCL 20 MEQ ERTAB PO ONE (05:07)
[2022-04-05] MEDS: ACETAMINOPHEN WITH CODEINE 1 TAB TAB PO PRN ×2 (08:05→17:14)
[2022-04-05 08:16] VITALS: BP 135/63
[2022-04-05] MEDS ORDERED: POTASSIUM CHLORIDE 10% ELIXIR 20 MEQ/15 ML UDCUP PO SCH (09:00)
[2022-04-05] MEDS: LAMOTRIGINE 100 MG TABLET PO SCH (10:20)
[2022-04-05] MEDS: NIFEDIPINE 10 MG CAP PO SCH ×2 (10:21→13:47)
[2022-04-05] MEDS: ENOXAPARIN SODIUM 30 MG/0.3 ML SQ SCH (10:21)
[2022-04-05] MEDS: PANTOPRAZOLE 40 MG TAB DR PO SCH (10:22)
[2022-04-05 11:16] VITALS: BP 132/68
[2022-04-05 16:00] VITALS: BP 118/60
== END 2022-04-05 19:10 | DRG 563 ==
LOC: EDH 10:19 → OBSVTOIN 17:05 → EDHIP 17:05 → 4BH 04-02 07:56 → 4AH 04-03 22:24
PROVIDERS: ADMIT Internal Medicine; ATTEND Internal Medicine
DX: S42.202A Unspecified fracture of upper end of left humerus, initial encounter for closed fracture (principal); Z20.822 Contact with and (suspected) exposure to COVID-19; G40.909 Epilepsy, unspecified, not intractable, without status epilepticus; I10 Essential (primary) hypertension; D72.829 Elevated white blood cell count, unspecified; Z79.899 Other long term (current) drug therapy; E87.6 Hypokalemia; Z95.0 Presence of cardiac pacemaker; Z83.3 Family history of diabetes mellitus; W01.0XXA Fall on same level from slipping, tripping and stumbling without subsequent striking against object, initial encounter; Y93.89 Activity, other specified; Y92.098 Other place in other non-institutional residence as the place of occurrence of the external cause; Y99.8 Other external cause status
CPT/HCPCS: 36415; 70450; 72125; 73030; 80048; 80053; 80305; 82140; 82607; 84443; 84484; 85025; 85027; 87635; 93005; 93880; 97039; 99291; G0378; J1650; J1885

== ENCOUNTER 2024-09-29 12:58 | Emergency (ER) | payer OTHER ==
[~2024-09-29] VITALS: Ht 165.1 cm; Wt 47.6 kg
[~2024-09-29 12:58] MED LIST changes: +ACET-2079 PO; -ATOR20TA65 PO; +LAMO100T16 PO; -LEVE750T4 PO; +MEMA10TA21 PO; -PIND10TA2 PO
--- NOTE | 2024-09-29 13:50 | ERN ---
ED Note History of Present Illness Stated Complaint: BUMP ON HEAD FROM FALL, UNABLE TO WALK AFTER FALL Chief Complaint: Mechanical Fall Time Seen by MD: 13:23 Dictation: Patient is a 84-year-old female with a past medical history of dementia and seizures presents to the ED due to two recent falls. Patient fell last night but had no injuries in per this morning at breakfast patient fell again and hit her head. She denies headaches, dizziness, or shortness of breath. She states her right ankle hurts with movement. She admits to having generalized weakness and fatigue but attributes this to old age. Allergies: Coded Allergies: No Known Allergies (Unverified Allergy, Unknown, 11/04/18) Home Meds Active Scripts Acetaminophen with Codeine (Acetaminophen-Cod #3 Tablet) 1 Each Tablet, 1 EACH PO BID PRN for PAIN LEVEL 7 TO 10 for 7 Days, #14 TAB 0 Refills Prov:ANUPAM TRACEY 04/04/22 Reported Medications Lamotrigine (Lamotrigine) 100 Mg Tablet, 1 TAB PO BID 04/02/22 Memantine HCl (Memantine HCl) 10 Mg Tablet, 1 TAB PO BID 04/02/22 Past Medical History Past Medical History: No Pertinent History, Dementia, Seizure Surgical History: None Review of System Dictation Constitutional-no chills, weight loss/gain, fever. Generalized weakness and fatigue Eyes-no injury, pain, redness and discharge. Blurry vision ENT-no injury, pain, swelling Cardiovascular no chest pain, palpitations, edema Respiratory no shortness of breath, cough, wheezing Abdomen/GI-no abdominal pain, diarrhea, constipation, vomiting, nausea Back no injury and pain Genitourinary no injury, bleeding and discharge Musculoskeletal/extremities no deformity. Right ankle injured and swollen Skin no rash, discoloration Neuro-no headache, weakness, numbness, tingling, seizures, tremors Psych-no suicidal ideation, homicidal ideation, hallucinations, depression, anxiety, memory loss Initial Vital Sign VS Vital Signs Date Time Temp Pulse Resp B/P (MAP) Pulse Ox O2 Delivery O2 Flow Rate FiO2 09/29/24 13:20 99.1 72 20 144/61 97 Room Air 0 09/29/24 15:24 21 Physical Exam Dictation VITAL SIGNS: Reviewed. GENERAL APPEARANCE: Alert, oriented x3, no acute distress, obese. HEAD AND FACE: Occipital head tender to palpation. EYES: PERRL, pink conjunctivas, eyelid no trauma, anterior chamber clear. EARS: Pinnas intact and no signs of trauma or erythema. Ear canals clear and no discharge. TMs no erythema. NOSE: No discharge, no bleeding. OROPHARYNX: Mouth normal, teeth no caries, tongue pink. Pharynx clear, no erythema. Tonsils no exudates, no abscesses noted. Mucous membrane moist. NECK: Supple, non-tender, no thyromegaly, no masses, no JVD, no bruits. BREAST: Deferred. CHEST: No tenderness, no crepitus, no paradoxical movement, no retractions. LUNGS: Clear, well-ventilated, symmetric, no rales, no wheezing, no rhonchi, no stridor, good breath sounds bilaterally. HEART: Regular rate, regular rhythm, no murmur, no gallops. VASCULAR: No peripheral edema. ABDOMEN: Soft, positive bowel sounds, nondistended, no guarding, nontender, no rebound, no masses no hepatomegaly, no splenomegaly, no Brambila's sign, no hernias. RECTAL: Swelling, lesion, possible pilonidal cyst GENITAL: Deferred. NEUROLOGICAL: Normal speech, gross motor function intact, gross sensory function intact. MUSCULOSKELETAL: Neck nontender, full range of motion, back nontender. EXTREMITIES: Right ankle swollen and tender to touch, pain illicit on movement. SKIN: Color pink, dry, no turgor, no rash, no lacerations, no abrasions, no contusions. LYMPHATICS: Deferred. Results (Laboratory/Radiology) Laboratory/Radiology Laboratory Tests Test 09/29/24 16:02 White Blood Count 11.2 K/uL (4.8-10.8) H Red Blood Count 3.97 MIL/uL (4.00-5.50) L Hemoglobin 13.5 g/dL (12.0-16.0) Hematocrit 39.7 % (36-48) Mean Corpuscular Volume 100.0 fL (79-99) H Mean Corpuscular Hemoglobin 34.0 pg (27.0-33.0) H Mean Corpuscular Hemoglobin Concent 34.0 g/dL (32.0-36.0) Red Cell Distribution Width 12.9 % (11.0-15.5) Platelet Count 288 K/uL (130-400) Mean Platelet Volume 9.2 fL (7.5-10.5) Immature Granulocyte % (Auto) 0.4 % (0-1) Neutrophils (%) (Auto) 67.5 % (40.0-77.0) Lymphocytes (%) (Auto) 21.4 % (21.0-51.0) Monocytes (%) (Auto) 9.5 % (3.0-13.0) Eosinophils (%) (Auto) 0.8 % (0.0-8.0) Basophils (%) (Auto) 0.4 % (0.0-5.0) Neutrophils # (Auto) 7.6 K/uL (1.8-7.7) Lymphocytes # (Auto) 2.4 K/uL (1.0-4.8) Monocytes # (Auto) 1.1 K/uL (0.1-1.0) H Eosinophils # (Auto) 0.09 K/uL (0.00-0.70) Basophils # (Auto) 0.04 K/uL (0.00-0.20) Absolute Immature Granulocyte (auto 0.04 K/uL (0-1) Nucleated Red Blood Cells 0.0 % (0.0-0.19) Sodium Level 136 mmol/L (136-145) Potassium Level 3.9 mmol/L (3.5-5.1) Chloride Level 101 mmol/L (101-111) Carbon Dioxide Level 29 mmol/L (21-32) Blood Urea Nitrogen 21 mg/dL (7-18) H Creatinine 1.1 mg/dL (0.5-1.0) H Glomerular Filtration Rate Calc 50 mL/min (>90) Random Glucose 111 mg/dL (70-105) H Total Calcium 9.4 mg/dL (8.5-10.1) Total Creatine Kinase 95 U/L (21-232) # Troponin I High Sensitivity 16 ng/L (4-50) EKG Comment: EKG obtained 09/29/2024 at 16:09:22 Sinus rhythm HR [address] elevations or depressions X-RAY Comment: CXR: FINDINGS: A frontal projection of the chest was obtained. No acute pulmonary infiltrates is seen. The heart is normal in size. Pacemaker is seen entering from the left. Aortic calcifications are seen. Degenerative changes are seen. IMPRESSION: 1. No acute pulmonary infiltrate is seen. Cervical spine x-ray: FINDINGS: 3 images of cervical spine were obtained. There are degenerative changes in cervical spine spondylosis. Disc space narrowing are seen at C3-4 through C6-7 levels. There is straightening of normal lordotic curvature which may be related to muscle spasm or positioning. No loss of vertebral height is seen. No fracture or dislocation is seen. Degenerative changes are seen. IMPRESSION: 1. No fracture is seen. DJD with cervical spine spondylosis. Right ankle x-ray: FINDINGS: There is no acute displaced fracture or dislocation. There is soft tissue swelling. There is a calcaneal spur. Degenerative changes are seen. IMPRESSION: 1. Findings as described above. CT Scan Comment: CT head w/o contrast: FINDINGS: The ventricles and extraventricular CSF spaces are dilated consistent with cerebral atrophy. Nonspecific white matter changes seen. There is no midline shift, mass effect or herniation. No acute intracranial bleed is seen. Visualized portion of the paranasal sinuses are grossly within normal limits. IMPRESSION: 1. No acute intracranial bleed is seen. 2. Atrophy with white matter changes. ED Course ED Course Orders Procedure Category Date Status Time Ct Head/Brain W/O CT 09/29/24 Resulted Contrast 13:24 Cerv Spine 2-3vws RAD 09/29/24 Resulted 13:40 Ankle 2vws Rt RAD 09/29/24 Resulted 13:50 Urinalysis Profile LAB 09/29/24 Logged 13:50 Cbc With Differential LAB 09/29/24 Complete 13:50 Basic Metabolic Panel LAB 09/29/24 Complete 13:50 12 Lead Ekg Tracing- EKG 09/29/24 Resulted Technical 13:50 Chest 1vw RAD 09/29/24 Resulted 13:50 Troponin I High LAB 09/29/24 Complete Sensitivity 13:50 Creatine Kinase, Total LAB 09/29/24 Complete 13:50 12 Lead Ekg Tracing- EKG 09/29/24 Resulted Technical 15:26 Vital Signs Date Time Temp Pulse Resp B/P (MAP) Pulse Ox O2 Delivery O2 Flow Rate FiO2 09/29/24 17:22 98.2 65 16 138/58 99 Room Air* 0 21 09/29/24 15:24 99.1 72 16 144/60 98 Room Air* 0 21 09/29/24 13:20 99.1 72 20 144/61 97 Room Air 0 Medical Decision Making MDM MDM INITIAL IMPRESSION Initial history and physical concerning for recent fall. Contributing medical problems: Dementia I have reviewed the triage nursing notes and vital signs. Initial plan: Laboratory evaluation, CT head w/o contrast, cervical spine x-ray DATA REVIEW I have reviewed additional NN, repeat VS, and monitoring where indicated. Heart rate, blood pressure, and O2 saturation are acceptable. ED COURSE Interventions: Gel ankle splint Reassessment: Patient doing better DISPOSITION Final diagnostic impression: Right ankle sprain due to mechanical fall possibly due to fatigue I discussed my findings, clinical impression and treatment recommendations with the patient. My final plan for disposition was made based upon -mild risk of complications and potential morbidity of the patient's condition. -Discussion with the patient regarding management options. Patient will be discharged and advised to follow up PCP DX & DISP Disposition: Discharge Departure Impression: Primary Impression: Accident due to mechanical fall without injury Additional Impressions: Right ankle sprain, Fatigue Condition: Stable Additional Instructions: Avoid activities that put stress on your ankles, including walking or running, for the first few days, apply an ice pack to the injured area for 15-20 minutes at a time, several times a day, especially during the first 24-48 hours. Keep your ankle elevated above your heart as much as possible, especially when resting or sleeping, to minimize swelling. You can take over the counter pain relievers like ibuprofen or acetaminophen to manage pain and inflammation. FOLLOW-UP WITH PRIMARY CARE PROVIDER IN 1 TO 2 DAYS. TAKE MEDICATIONS DIRECTED HERE IN THE EMERGENCY ROOM. OKAY TO CONTINUE HOME MEDICATIONS UNLESS OTHERWISE DISCUSSED DURING YOUR VISIT IN THE EMERGENCY ROOM TODAY. RETURN TO YOUR NEAREST EMERGENCY ROOM IF SYMPTOMS WORSEN OR IF THERE IS NO IMPROVEMENT. CALL 911 IF YOU NEED IMMEDIATE ASSISTANCE. TAKE TYLENOL [id number] NEEDED AND IF NO CONTRAINDICATIONS ARE PRESENT. INCREASE ORAL HYDRATION. A WOUND CULTURE OR URINE CULTURE WAS ORDERED HERE IN THE EMERGENCY ROOM DEPARTMENT PLEASE FOLLOW-UP WITH PRIMARY CARE PROVIDER AND ADVISE THEM TO GET REPEAT PORTS FROM OUR FACILITY. IF YOU HAD ANY NEREIDA WRAP/SPLINTS THAT WERE APPLIED HERE, PLEASE DO NOT REMOVE THEM UNTIL YOU SEE YOUR PRIMARY CARE OR SPECIALTY. Referrals: NONE (PCP) Time of Disposition: 17:13 I have reviewed I have reviewed the case I have examined patient DENISE KERR MD Sep 29, 2024 13:50
--- NOTE | 2024-09-29 14:07 | HMCIMG ---
CT HEAD/BRAIN W/O CONTRAST HISTORY: Status post fall COMPARISON: None TECHNIQUE: Multiple sequential axial images of the head were obtained from the base of the skull through vertex. Patient was not given contrast through intravenous route. FINDINGS: The ventricles and extraventricular CSF spaces are dilated consistent with cerebral atrophy. Nonspecific white matter changes seen. There is no midline shift, mass effect or herniation. No acute intracranial bleed is seen. Visualized portion of the paranasal sinuses are grossly within normal limits. IMPRESSION: 1. No acute intracranial bleed is seen. 2. Atrophy with white matter changes. CT was performed with one or more following dose reduction techniques: automated exposure control, adjustment of the mA and kv according to patient's size, or use of a iterative reconstruction technique.
--- NOTE | 2024-09-29 14:39 | HMCIMG ---
ANKLE 2VWS RT HISTORY: Status post fall COMPARISON: None TECHNIQUE: 3 images of right ankle were obtained. FINDINGS: There is no acute displaced fracture or dislocation. There is soft tissue swelling. There is a calcaneal spur. Degenerative changes are seen. IMPRESSION: 1. Findings as described above.
--- NOTE | 2024-09-29 14:40 | HMCIMG ---
CERV SPINE 2-3VWS HISTORY: Status post fall COMPARISON: None FINDINGS: 3 images of cervical spine were obtained. There are degenerative changes in cervical spine spondylosis. Disc space narrowing are seen at C3-4 through C6-7 levels. There is straightening of normal lordotic curvature which may be related to muscle spasm or positioning. No loss of vertebral height is seen. No fracture or dislocation is seen. Degenerative changes are seen. IMPRESSION: 1. No fracture is seen. DJD with cervical spine spondylosis.
--- NOTE | 2024-09-29 14:41 | HMCIMG ---
CHEST 1VW HISTORY: Injury COMPARISON: 01/09/2021 FINDINGS: A frontal projection of the chest was obtained. No acute pulmonary infiltrates is seen. The heart is normal in size. Pacemaker is seen entering from the left. Aortic calcifications are seen. Degenerative changes are seen. IMPRESSION: 1. No acute pulmonary infiltrate is seen.
--- NOTE | 2024-09-29 14:43 | EKG ---
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 : 1940 Requested By: DENISE KERR Order Number: [id number] Reading MD: Janak Garber Measurements Intervals [place] Rate: 75 P: 17 WV: 174 QRS: -19 QRSD: 86 T: -3 QT: 429 QTc: 480 Interpretive Statements Sinus rhythm Atrial premature complex Low voltage, precordial leads Left ventricular hypertrophy Possible anteroseptal infarct Compared to ECG 04/01/2022 11:52:59 Atrial premature complex(es) now present Low QRS voltage now present Q waves now present Sinus arrhythmia no longer present Early repolarization no longer present Myocardial infarct finding no longer present Electronically Signed On 09-29-2024 17:07:28 ACCOUNTING SOFTWARE SPECIALIST by Janak Garber Please click the below link to view image of tracing.
[2024-09-29 16:09] LABS: BASOPHILS # (AUTO) 0.04 K/uL (0.00-0.20); BASOPHILS % (AUTO) 0.4 % (0.0-5.0); EOSINOPHILS # (AUTO) 0.09 K/uL (0.00-0.70); EOSINOPHILS % (AUTO) 0.8 % (0.0-8.0); HEMATOCRIT 39.7 % (36-48); IMMATURE GRANULOCYTE ABSOLUTE 0.04 K/uL (0-1); LYMPHOCYTES # (AUTO) 2.4 K/uL (1.0-4.8); LYMPHOCYTES % (AUTO) 21.4 % (21.0-51.0); MONOCYTES # (AUTO) 1.1 K/uL (0.1-1.0); MONOCYTES % (AUTO) 9.5 % (3.0-13.0); NEUTROPHILS # (AUTO) 7.6 K/uL (1.8-7.7); NEUTROPHILS % (AUTO) 67.5 % (40.0-77.0); PLATELET COUNT (AUTO) 288 K/uL (130-400); RED BLOOD CELL COUNT(AUTO) 3.97 MIL/uL (4.00-5.50); RED CELL DISTRIBUTION WIDTH 12.9 % (11.0-15.5); WHITE BLOOD COUNT (AUTO) 11.2 K/uL (4.8-10.8)
--- NOTE | 2024-09-29 16:12 | EKG ---
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
[2024-09-29 16:18] LABS: CREATININE 1.1 mg/dL (0.5-1.0); POTASSIUM 3.9 mmol/L (3.5-5.1)
[2024-09-29 17:22] VITALS: BP 138/58; PULSE 65; RESP 16; TEMP 98.3; O2SAT 99
== END 2024-09-29 17:41 | disposition home or self-care (01) ==
LOC: EDH 12:58
DX: S93.491A Sprain of other ligament of right ankle, initial encounter (principal); F03.90 Unspecified dementia, unspecified severity, without behavioral disturbance, psychotic disturbance, mood disturbance, and anxiety; Z79.899 Other long term (current) drug therapy; W18.39XA Other fall on same level, initial encounter; Y93.89 Activity, other specified; Y92.89 Other specified places as the place of occurrence of the external cause; Y99.8 Other external cause status
CPT/HCPCS: 36415; 70450; 71045; 72040; 73600; 80048; 82550; 84484; 85025; 93005; 99285